=== PATIENT | male | born 1985 | race Two or more races ===

== ENCOUNTER 2018-06-19 09:30 | Inpatient (IN) | payer OTHER ==
[2018-06-19 09:50] VITALS: BMI 20.5
[2018-06-19] MEDS ORDERED: SODIUM CHLORIDE 0.9% 1000 ML INFUS.BAG IV STA (09:55)
[2018-06-19] MEDS ORDERED: ACETAMINOPHEN 1000 MG/100 ML VIAL (NON FORMULARY) IVPB ONE ×2 (09:57→23:56)
[2018-06-19] MEDS ORDERED: ACETAMINOPHEN INJECTION 100 ML IVPB ONE (10:07)
--- NOTE | 2018-06-19 10:33 | PDOC ---
History of Present Illness - General History Source: Patient, Family (Brother in law ) Exam Limitations: No Limitations - History of Present Illness Initial Comments: 06/19/18 11:33 The patient is a 33 year old male presenting with his brother in law, with no significant past medical history, who presents to the ED complaining of fever, chills, nausea, body aches for the past 4 days, a/w nonproductive cough for the past 2 days. He reports that his fevers have been as high as 100.6. He notes that these kinds of fevers happen to him twice a year, usually at the change of temperature. He denies any recent travel or sick contacts. He denies any insect bites, rash or hiking. He notes that his last bowel movement was yesterday and denies any kind of blood in stool. No IVDU or recent surgeries/procedures. The patient denies chest pain, shortness of breath, headache and dizziness. Denies vomiting, diarrhea or constipation. Denies dysuria, frequency, urgency and hematuria. Allergies: None Past surgical history: None reported Social History: No alcohol, tobacco or drug use reported No PCP <Vipul Peres - Last Filed: 06/19/18 11:33> - General History Source: Patient, Family Exam Limitations: No Limitations <Jackelin Hurtado - Last Filed: 06/19/18 16:11> - General Chief Complaint: SIRS, Suspected/Possible Stated Complaint: FEVER, PAIN Time Seen by Provider: 06/19/18 09:55 Past History <Vipul Peres - Last Filed: 06/19/18 11:33> - Past Medical History COPD: No - Immunization History Immunization Up to Date: No - Suicide/Smoking/Psychosocial Hx Smoking History: Never smoked Hx Alcohol Use: No Drug/Substance Use Hx: No <Jakcelin Hurtado - Last Filed: 06/19/18 16:11> - Past Medical History Allergies/Adverse Reactions: Allergies Allergy/AdvReac Type Severity Reaction Status Date / Time No Known Allergies Allergy Verified 06/19/18 09:47 Review of Systems - Review of Systems Able to Perform ROS?: Yes Comments:: 06/19/18 11:33 Constitutional: (+) fevers and chills. +weakness HEENT: no headache or dizziness. No neck pain. CVS: no cp or syncope. Resp: (+) Cough. no sob. No wheezing or hemoptysis. Abdomen: (+) Nausea, no abdominal pain, or vomiting. No bloody stools. No diarrhea MUSCULOSKELETAL: No joint pain and swelling. +back pain SKIN: no redness or skin changes, no discharge, no rash. +pallor Hematologic: no easy bruising/bleeding. NEUROLOGIC: No headache, dizziness, LOC or altered mental status. No weakness, numbness or tingling. All other systems reviewed and negative, or as documented in HPI. <Vipul Peres - Last Filed: 06/19/18 11:33> *Physical Exam - Vital Signs Last Vital Signs Temp Pulse Resp BP Pulse Ox 103.1 F H 137 H 18 120/78 97 06/19/18 09:47 06/19/18 09:47 06/19/18 09:47 06/19/18 09:47 06/19/18 09:47 - Physical Exam Comments: 06/19/18 11:33 General: (+) Pale appearing, awake and alert, NAD. speaking full sentences and clearly HEENT: NCAT, PERRL, EOMI, clear conjunctiva, anicteric, moist mucus membranes, clear oropharynx, no oral lesions.. Neck: neck supple, FROM Resp: CTAB, normal and even respirations, no respiratory distress CVS: +tachycardic, no murmurs, 2+ peripheral pulses throughout, no peripheral edema Abdomen: soft, NTND, no peritoneal signs. No CVAT. Back: +diffuse tenderness over thoracic and lumbar back, normal inspection and ROM MSK: no edema, BALDERAS x4, ROM intact. No clubbing or cyanosis. normal bulk and tone. Neuro: alert, oriented appropriately; no focal neurologic deficits Skin: very warm to touch and well perfused, cap refill <2 sec, pallor/ no cyanosis. <Vipul Peres - Last Filed: 06/19/18 11:33> - Vital Signs Last Vital Signs Temp Pulse Resp BP Pulse Ox 103.1 F H 137 H 18 120/78 97 06/19/18 09:47 06/19/18 09:47 06/19/18 09:47 06/19/18 09:47 06/19/18 09:47 <Jackelin Hurtado - Last Filed: 06/19/18 16:11> ED Treatment Course - LABORATORY CBC & Chemistry Diagram: 06/19/18 10:21 06/19/18 10:21 - ADDITIONAL ORDERS Additional order review: Laboratory Results 06/19/18 06/19/18 06/19/18 10:40 10:21 10:21 VBG pH POC VBG pCO2 POC VBG pO2 Mixed VBG HCO3 Sodium Potassium Chloride Carbon Dioxide Anion Gap BUN Creatinine Creat Clearance w eGFR Random Glucose Lactic Acid Calcium Total Bilirubin AST ALT Alkaline Phosphatase Troponin I Cancelled Total Protein Albumin Lipase Cancelled Urine Color Jasmine Urine Appearance Clear Urine pH 7.0 Ur Specific [place] 1.029 Urine Protein 1+ H Urine Glucose (UA) Negative Urine Ketones Trace H Urine Blood Negative Urine Nitrite Negative Urine Bilirubin Negative Urine Urobilinogen Negative Ur Leukocyte Esterase Negative Urine WBC (Auto) 1 Urine RBC (Auto) 2 Ur Epithelial Cells Rare Hyaline Casts 1 Urine Mucus Few 06/19/18 06/19/18 06/19/18 10:21 10:21 10:21 VBG pH 7.37 POC VBG pCO2 50.9 POC VBG pO2 22.1 L Mixed VBG HCO3 28.8 H Sodium 138 Potassium 4.2 Chloride 102 Carbon Dioxide 28 Anion Gap 8 BUN 15 Creatinine 1.1 Creat Clearance w eGFR > 60 Random Glucose 108 H Lactic Acid 1.4 Calcium 8.9 Total Bilirubin 0.6 AST 32 ALT 34 Alkaline Phosphatase 79 Troponin I < 0.02 Total Protein 8.1 Albumin 4.0 Lipase 238 Urine Color Urine Appearance Urine pH Ur Specific [place] Urine Protein Urine Glucose (UA) Urine Ketones Urine Blood Urine Nitrite Urine Bilirubin Urine Urobilinogen Ur Leukocyte Esterase Urine WBC (Auto) Urine RBC (Auto) Ur Epithelial Cells Hyaline Casts Urine Mucus 06/19/18 10:21 RBC 5.67 H MCV 80.8 MCHC 33.7 RDW 13.4 MPV 10.0 Neutrophils % 73.2 Lymphocytes % 15.6 Monocytes % 10.5 H Eosinophils % 0.3 Basophils % 0.4 - Medications Given in the ED: ED Medications Discontinued Medications Generic Name Dose Route Start Last Admin Trade Name Freq PRN Reason Stop Dose Admin Acetaminophen 1,000 mg 06/19/18 09:57 06/19/18 10:15 Ofirmev Injection - IVPB 06/19/18 09:58 1,000 mg ONCE ONE Administration Sodium Chloride 2,000 ml 06/19/18 09:55 06/19/18 10:15 Normal Saline - 30 ml/kg (2000 ml) 06/19/18 09:56 2,000 ml IV Administration ONCE STA <Vipul Peres - Last Filed: 06/19/18 11:33> - LABORATORY CBC & Chemistry Diagram: 06/19/18 10:21 06/19/18 10:21 - RADIOLOGY Radiology Studies Ordered: Category Date Time Status CHEST PA & LAT [RAD] Stat Radiology 06/19/18 10:31 Ordered Chest X-Ray Result: Other (atelectasis vs infiltrate on left side) - Medications Given in the ED: ED Medications Discontinued Medications Generic Name Dose Route Start Last Admin Trade Name Freq PRN Reason Stop Dose Admin Acetaminophen 1,000 mg 06/19/18 09:57 06/19/18 10:15 Ofirmev Injection - IVPB 06/19/18 09:58 1,000 mg ONCE ONE Administration Sodium Chloride 2,000 ml 06/19/18 09:55 06/19/18 10:15 Normal Saline - 30 ml/kg (2000 ml) 06/19/18 09:56 2,000 ml IV Administration ONCE STA <HurtadoJackelin - Last Filed: 06/19/18 16:11> Medical Decision Making - Medical Decision Making 06/19/18 11:29 33 YOM with no med history with fever x 4 days, +cough and weakness, back pain/ myalgias. DDx. viral syndrome, febrile illness, bacteremia, Babesia, lyme disease vitals with +fever, tachycardia, normotensive. pale appearing, but No acute distress. VS improved with treatment, still tachy, normotensive, fever downtrending EKG sinus tachycardia 127 bpm, no interval abnormalities, narrow QRS, ST and T wave segments and morphology normal. Nonspecific T wave abnormalities in III, no significant derangements. labs and lytes wnl, reassuring; lactic normal cultures including blood and urine pending UA neg for infection peripheral smear and lyme sent for possible parasitic infection /Babesia in high risk geographic area. CXR with ?left lobe infiltrate vs atelectasis, will treat clinically for pneumonia, Ceftriaxone and azithromycin. no sputum for culture, which is fine. dispo: admit for close monitoring due to sepsis, but suspecting atypical pneumonia with prior history and +respiratory sx, f/u cultures and smear and observation. 06/19/18 16:10 <Jackelin Hurtado - Last Filed: 06/19/18 16:11> *DC/Admit/Observation/Transfer - Attestations Scribe Attestion: 06/19/18 11:34 Documentation prepared by Vipul Peres, acting as medical clinic manager for Jackelin Hurtado MD <Vipul Peres - Last Filed: 06/19/18 11:33> - Discharge Dispostion Decision to Admit order: Yes Decision to Admit order Date/Time: 06/19/18 11:37 Decision to Admit Order Category Date Time Status Decision to Admit to Hospital Routine Admission 06/19/18 10:34 Active - Attestations Physician Attestion: 06/19/18 11:25 I, Jackelin Hurtado MD, attest that this document has been prepared under my direction and personally reviewed by me in its entirety. I further attest, that it accurately reflects all work, treatment, procedures and medical decision -making performed by me. <Jackelin Hurtado - Last Filed: 06/19/18 16:11> Diagnosis at time of Disposition: Sepsis, Febrile illness, acute, Pneumonia - Discharge Dispostion Condition at time of disposition: Guarded
[2018-06-19 10:59] LABS: VENOUS PC02 50.9 mmHg (38-52); VENOUS PH 7.37 (7.32-7.42); VENOUS PO2 22.1 mmHg (28-48)
[2018-06-19 11:08] LABS: BASO % 0.4 % (0-2.0); EOS % 0.3 % (0-4.5); HEMATOCRIT 45.8 % (35.4-49); HEMOGLOBIN 15.5 GM/dL (11.7-16.9); LYMPH % 15.6 % (8-40); MCH 27.3 pg (25.7-33.7); MCHC 33.7 g/dl (32.0-35.9); MEAN CELL VOLUME 80.8 fl (80-96); MONO % 10.5 % (3.8-10.2); NEUT % 73.2 % (42.8-82.8); PLATELET COUNT 140 K/MM3 (134-434); RBC 5.67 M/mm3 (4.00-5.60); RDW 13.4 % (11.9-15.9); WHITE BLOOD COUNT 8.5 K/mm3 (4.0-10.0)
[2018-06-19 11:11] LABS: URINE APPEARANCE CLEAR; URINE BILIRUBIN NEGATIVE (<2.0 mg/dL); URINE COLOR AMBER; URINE GLUCOSE (UA) NEGATIVE (NEGATIVE); URINE KETONE TRACE (NEGATIVE); URINE LEUK ESTERASE NEGATIVE (NEGATIVE); URINE NITRITE NEGATIVE (NEGATIVE); URINE PROTEIN 1+ (NEGATIVE); URINE UROBILINOGEN NEGATIVE mg/dL (0.2-1.0)
[2018-06-19 11:17] LABS: EPI CELLS RARE /HPF (FEW); URINE HYALINE CAST 1 /lpf; URINE MUCUS FEW
[2018-06-19 11:23] LABS: INR 1.18 (0.83-1.09)
[2018-06-19 11:24] LABS: ALK PHOS 79 U/L (45-117); ANION GAP 8 MMOL/L (8-16); BILIRUBIN,TOTAL 0.6 mg/dL (0.2-1); BLOOD UREA NITROGEN 15 mg/dL (7-18); CALCIUM 8.9 mg/dL (8.5-10.1); CHLORIDE 102 mmol/L (98-107); CO2 28 mmol/L (21-32); CREATININE 1.1 mg/dL (0.55-1.3); GLUCOSE,RANDOM 108 mg/dL (74-106); LIPASE 238 U/L (73-393); POTASSIUM 4.2 mmol/L (3.5-5.1); SGOT/AST 32 U/L (15-37); SGPT/ALT 34 U/L (13-61); SODIUM 138 mmol/L (136-145); TOT PROT 8.1 g/dl (6.4-8.2)
[2018-06-19] MEDS ORDERED: CEFTRIAXONE 1,000 MG in DEXTROSE 5%-WATER - 50 ML IVPB ONE (11:43)
[2018-06-19] MEDS ORDERED: AZITHROMYCIN 500 MG TABLET PO ONE (11:44)
[2018-06-19] MEDS ORDERED: CEFTRIAXONE 1 GM/50 ML BAG ONE (12:01)
[2018-06-19] MEDS ORDERED: AZITHROMYCIN 500 MG TABLET ONE (12:01)
[2018-06-19] MEDS ORDERED: LACTATED RINGERS SOLUTION 1,000 ML IV SCH (12:45)
--- NOTE | 2018-06-19 14:22 | HP ---
CHIEF COMPLAINT: fever PCP: none HISTORY OF PRESENT ILLNESS: 33 year old male with no past medical history presents to the hospital for 4 days of fevers, chills, lower back pain and dry, nonproductive cough. He reports no inciting factors but states that he gets similar symptoms around twice a year when the seasons change and the weather changes from warm to cold and vice-versa. Patietn denies nausea, vomiting, diarrhea, chest pain, shortness of breath. Reports that he took tylenol, which helped him a little, but reports that the fever returned. ER course was notable for: (1) fever 102 (2) tachycardia (3) CXR with possible infiltrate in L mid/lower lobe Recent Travel: denies PAST MEDICAL HISTORY: none PAST SURGICAL HISTORY: denies Social History: Smoking: never Alcohol: never Drugs: never Family History: denies any history of stroke, DM, HTN, or cancer Allergies No Known Allergies Allergy (Verified 06/19/18 09:47) HOME MEDICATIONS: REVIEW OF SYSTEMS CONSTITUTIONAL: fever Absent: chills, diaphoresis, generalized weakness, malaise, loss of appetite, weight change HEENT: Absent: rhinorrhea, nasal congestion, throat pain, throat swelling, difficulty swallowing, mouth swelling, ear pain, eye pain, visual changes CARDIOVASCULAR: Absent: chest pain, syncope, palpitations, irregular heart rate, lightheadedness , peripheral edema RESPIRATORY: Absent: cough, shortness of breath, dyspnea with exertion, orthopnea, wheezing, stridor, hemoptysis GASTROINTESTINAL: Absent: abdominal pain, abdominal distension, nausea, vomiting, diarrhea, constipation, melena, hematochezia GENITOURINARY: Absent: dysuria, frequency, urgency, hesitancy, hematuria, flank pain, genital pain MUSCULOSKELETAL: Absent: myalgia, arthralgia, joint swelling, back pain, neck pain SKIN: Absent: rash, itching, pallor HEMATOLOGIC/IMMUNOLOGIC: Absent: easy bleeding, easy bruising, lymphadenopathy, frequent infections ENDOCRINE: Absent: unexplained weight gain, unexplained weight loss, heat intolerance, cold intolerance NEUROLOGIC: Absent: headache, focal weakness or paresthesias, dizziness, unsteady gait, seizure, mental status changes, bladder or bowel incontinence PSYCHIATRIC: Absent: anxiety, depression, suicidal or homicidal ideation, hallucinations. PHYSICAL EXAMINATION Vital Signs - 24 hr 06/19/18 06/19/18 06/19/18 09:47 10:20 11:58 Temperature 103.1 F H 102.0 F H Pulse Rate 137 H Pulse Rate [ 99 H Right] Respiratory 18 16 Rate Blood Pressure 120/78 Blood Pressure 132/71 [Right Arm] O2 Sat by Pulse 97 99 99 Oximetry (%) GENERAL: A&Ox3, no acute distress EYES: PERRLA, EOMI ENT: Moist mucus membranes NECK: No JVD LUNGS: CTA, no wheezes HEART: RRR, no murmurs ABDOMEN: Soft, nontender, BS present MUSCULOSKELETAL: No CVA Tenderness EXTREMITIES: 2+ pulses, no edema. NEUROLOGICAL: Cranial nerves II-XII intact. Laboratory Results - last 24 hr 06/19/18 06/19/18 06/19/18 10:21 10:21 10:21 WBC 8.5 RBC 5.67 H Hgb 15.5 Hct 45.8 MCV 80.8 MCH 27.3 MCHC 33.7 RDW 13.4 Plt Count 140 MPV 10.0 Absolute Neuts (auto) 6.2 Neutrophils % 73.2 Lymphocytes % 15.6 Monocytes % 10.5 H Eosinophils % 0.3 Basophils % 0.4 Nucleated RBC % 0 PT with INR 14.00 H INR 1.18 H VBG pH 7.37 POC VBG pCO2 50.9 POC VBG pO2 22.1 L Mixed VBG HCO3 28.8 H Sodium Potassium Chloride Carbon Dioxide Anion Gap BUN Creatinine Creat Clearance w eGFR Random Glucose Lactic Acid Calcium Total Bilirubin AST ALT Alkaline Phosphatase Troponin I Total Protein Albumin Lipase Urine Color Urine Appearance Urine pH Ur Specific [place] Urine Protein Urine Glucose (UA) Urine Ketones Urine Blood Urine Nitrite Urine Bilirubin Urine Urobilinogen Ur Leukocyte Esterase Urine WBC (Auto) Urine RBC (Auto) Ur Epithelial Cells Hyaline Casts Urine Mucus 06/19/18 06/19/18 06/19/18 10:21 10:21 10:21 WBC RBC Hgb Hct MCV MCH MCHC RDW Plt Count MPV Absolute Neuts (auto) Neutrophils % Lymphocytes % Monocytes % Eosinophils % Basophils % Nucleated RBC % PT with INR INR VBG pH POC VBG pCO2 POC VBG pO2 Mixed VBG HCO3 Sodium 138 Potassium 4.2 Chloride 102 Carbon Dioxide 28 Anion Gap 8 BUN 15 Creatinine 1.1 Creat Clearance w eGFR > 60 Random Glucose 108 H Lactic Acid 1.4 Calcium 8.9 Total Bilirubin 0.6 AST 32 ALT 34 Alkaline Phosphatase 79 Troponin I < 0.02 Cancelled Total Protein 8.1 Albumin 4.0 Lipase 238 Urine Color Urine Appearance Urine pH Ur Specific [place] Urine Protein Urine Glucose (UA) Urine Ketones Urine Blood Urine Nitrite Urine Bilirubin Urine Urobilinogen Ur Leukocyte Esterase Urine WBC (Auto) Urine RBC (Auto) Ur Epithelial Cells Hyaline Casts Urine Mucus 06/19/18 06/19/18 10:21 10:40 WBC RBC Hgb Hct MCV MCH MCHC RDW Plt Count MPV Absolute Neuts (auto) Neutrophils % Lymphocytes % Monocytes % Eosinophils % Basophils % Nucleated RBC % PT with INR INR VBG pH POC VBG pCO2 POC VBG pO2 Mixed VBG HCO3 Sodium Potassium Chloride Carbon Dioxide Anion Gap BUN Creatinine Creat Clearance w eGFR Random Glucose Lactic Acid Calcium Total Bilirubin AST ALT Alkaline Phosphatase Troponin I Total Protein Albumin Lipase Cancelled Urine Color Jasmine Urine Appearance Clear Urine pH 7.0 Ur Specific [place] 1.029 Urine Protein 1+ H Urine Glucose (UA) Negative Urine Ketones Trace H Urine Blood Negative Urine Nitrite Negative Urine Bilirubin Negative Urine Urobilinogen Negative Ur Leukocyte Esterase Negative Urine WBC (Auto) 1 Urine RBC (Auto) 2 Ur Epithelial Cells Rare Hyaline Casts 1 Urine Mucus Few ASSESSMENT/PLAN: 33 year old male with no past medical history presents to the hospital for 4 days of fevers, chills, lower back pain and dry, nonproductive cough. #Sepsis 2/2 Community Acquired Pneumonia: meets sepsis criteria from fever and tachycardia -CXR suggestive of possible PNA -white count normal -tylenol for fevers -ceftriaxone/azithromycin -fluid resuscitation, LR @ 100cc/hr #FEN -LR @ 100cc/hr -lytes normal -regular diet #Prophylaxis -early ambulation #Disposition -admit med surg Visit type - Emergency Visit Emergency Visit: Yes ED Registration Date: 06/19/18 Care time: The patient presented to the Emergency Department on the above date and was hospitalized for further evaluation of their emergent condition. - New Patient This patient is new to me today: Yes Date on this admission: 06/19/18 - Critical Care Critical Care patient: No
[2018-06-19] MEDS ORDERED: ACETAMINOPHEN 325 MG TABLET (FP) ONE (14:42)
[2018-06-19] MEDS: ACETAMINOPHEN 325 MG TABLET (FP) PO PRN ×2 (14:44→21:49)
--- NOTE | 2018-06-19 15:29 | PN ---
Teaching Attending Note Name of Resident: Camilo Bear ATTENDING PHYSICIAN STATEMENT I saw and evaluated the patient. I reviewed the resident's note and discussed the case with the resident. I agree with the resident's findings and plan as documented. SUBJECTIVE: This is a healthy 33 year old man who comes to the ED complaining of low back pain, fever, chills, and non-productive cough x 4 days. He denies chest pain, palpitations, SOB, abdominal pain, nausea, diarrhea, constipation, hematuria, dysuria, urinary frequency, rash. OBJECTIVE: Vital Signs Period Temp Pulse Resp BP Sys/Husain Pulse Ox Last 24 Hr 100.1 F-103.1 F 99-137 16-18 111-132/65-78 97-99 HEART: S1S2, tachycardic LUNGS: Crackles at left base ABDOMEN: Soft, non-tender, non-distended, normal BS EXTREMITIES: No edema BACK: No spinal, paraspinal, CVA tenderness Laboratory Tests 06/19/18 06/19/18 06/19/18 10:21 10:21 10:21 WBC 8.5 RBC 5.67 H Hgb 15.5 Hct 45.8 MCV 80.8 MCH 27.3 MCHC 33.7 RDW 13.4 Plt Count 140 MPV 10.0 Absolute Neuts (auto) 6.2 Neutrophils % 73.2 Lymphocytes % 15.6 Monocytes % 10.5 H Eosinophils % 0.3 Basophils % 0.4 Nucleated RBC % 0 PT with INR 14.00 H INR 1.18 H VBG pH 7.37 POC VBG pCO2 50.9 POC VBG pO2 22.1 L Mixed VBG HCO3 28.8 H Sodium Potassium Chloride Carbon Dioxide Anion Gap BUN Creatinine Creat Clearance w eGFR Random Glucose Lactic Acid Calcium Total Bilirubin AST ALT Alkaline Phosphatase Troponin I Total Protein Albumin Lipase Urine Color Urine Appearance Urine pH Ur Specific [place] Urine Protein Urine Glucose (UA) Urine Ketones Urine Blood Urine Nitrite Urine Bilirubin Urine Urobilinogen Ur Leukocyte Esterase Urine WBC (Auto) Urine RBC (Auto) Ur Epithelial Cells Hyaline Casts Urine Mucus 06/19/18 06/19/18 06/19/18 10:21 10:21 10:21 WBC RBC Hgb Hct MCV MCH MCHC RDW Plt Count MPV Absolute Neuts (auto) Neutrophils % Lymphocytes % Monocytes % Eosinophils % Basophils % Nucleated RBC % PT with INR INR VBG pH POC VBG pCO2 POC VBG pO2 Mixed VBG HCO3 Sodium 138 Potassium 4.2 Chloride 102 Carbon Dioxide 28 Anion Gap 8 BUN 15 Creatinine 1.1 Creat Clearance w eGFR > 60 Random Glucose 108 H Lactic Acid 1.4 Calcium 8.9 Total Bilirubin 0.6 AST 32 ALT 34 Alkaline Phosphatase 79 Troponin I < 0.02 Cancelled Total Protein 8.1 Albumin 4.0 Lipase 238 Urine Color Urine Appearance Urine pH Ur Specific [place] Urine Protein Urine Glucose (UA) Urine Ketones Urine Blood Urine Nitrite Urine Bilirubin Urine Urobilinogen Ur Leukocyte Esterase Urine WBC (Auto) Urine RBC (Auto) Ur Epithelial Cells Hyaline Casts Urine Mucus 06/19/18 06/19/18 10:21 10:40 WBC RBC Hgb Hct MCV MCH MCHC RDW Plt Count MPV Absolute Neuts (auto) Neutrophils % Lymphocytes % Monocytes % Eosinophils % Basophils % Nucleated RBC % PT with INR INR VBG pH POC VBG pCO2 POC VBG pO2 Mixed VBG HCO3 Sodium Potassium Chloride Carbon Dioxide Anion Gap BUN Creatinine Creat Clearance w eGFR Random Glucose Lactic Acid Calcium Total Bilirubin AST ALT Alkaline Phosphatase Troponin I Total Protein Albumin Lipase Cancelled Urine Color Jasmine Urine Appearance Clear Urine pH 7.0 Ur Specific [place] 1.029 Urine Protein 1+ H Urine Glucose (UA) Negative Urine Ketones Trace H Urine Blood Negative Urine Nitrite Negative Urine Bilirubin Negative Urine Urobilinogen Negative Ur Leukocyte Esterase Negative Urine WBC (Auto) 1 Urine RBC (Auto) 2 Ur Epithelial Cells Rare Hyaline Casts 1 Urine Mucus Few ASSESSMENT AND PLAN: This is a healthy 33 year old man who presented to the ED with fever, chills, non-productive cough, and low back pain. 1. Sepsis (fever, tachycardia) secondary to pneumonia - Rocephin, Zithromax IV - IV fluid
[2018-06-19] MEDS ORDERED: KETOROLAC TROMETHAMINE 15 MG/ML VIAL IVPUSH ONE (18:47)
[2018-06-19] MEDS ORDERED: KETOROLAC TROMETHAMINE 15 MG/ML VIAL ONE (18:48)
[2018-06-20] MEDS: ACETAMINOPHEN 325 MG TABLET (FP) PO PRN ×3 (06:24→23:16)
[2018-06-20 08:24] LABS: HEMATOCRIT 41.6 % (35.4-49); HEMOGLOBIN 14.2 GM/dL (11.7-16.9); MCH 27.4 pg (25.7-33.7); MEAN CELL VOLUME 80.5 fl (80-96); MEAN PLT VOLUME 9.5 fl (7.5-11.1); PLATELET COUNT 126 K/MM3 (134-434); RBC 5.17 M/mm3 (4.00-5.60); WHITE BLOOD COUNT 8.2 K/mm3 (4.0-10.0)
[2018-06-20 09:00] LABS: ANION GAP 7 MMOL/L (8-16); BLOOD UREA NITROGEN 10 mg/dL (7-18); CALCIUM 8.7 mg/dL (8.5-10.1); CHLORIDE 104 mmol/L (98-107); CO2 26 mmol/L (21-32); CREATININE 0.9 mg/dL (0.55-1.3); GLUCOSE,RANDOM 121 mg/dL (74-106); POTASSIUM 3.9 mmol/L (3.5-5.1); SODIUM 136 mmol/L (136-145)
[2018-06-20] MEDS ORDERED: PT OWN MED DRAWER 7, Y5N ONE ×3 (09:00→13:19)
[2018-06-20] MEDS ORDERED: DEXTROSE 5%-WATER 100 ML IVPB ONE (09:01)
[2018-06-20] MEDS ORDERED: AZITHROMYCIN IVPB 500 MG in DEXTROSE 5%-WATER - 250 ML IVPB SCH (10:00)
--- NOTE | 2018-06-20 10:45 | EKG ---
Test Reason : Blood Pressure : / mmHG Vent. Rate : 127 BPM Atrial Rate : 127 BPM P-R Int : 136 ms QRS Dur : 080 ms QT Int : 274 ms P-R-T Axes : 069 066 034 degrees QTc Int : 398 ms SINUS TACHYCARDIA OTHERWISE NORMAL ECG NO PREVIOUS ECGS AVAILABLE Confirmed by ADRI LINARES MD ([id number]) on 06/20/2018 10:45:06 AM Referred By: Confirmed By:ADRI LINARES MD
[2018-06-20] MEDS: AZITHROMYCIN IVPB 500 MG/250 ML BAG IVPB SCH (13:23)
[2018-06-20] MEDS: SODIUM CHLORIDE 1,000 ML IV SCH (15:13)
[2018-06-20] MEDS: CEFTRIAXONE 2 GM in DEXTROSE 5%-WATER 100 ML IVPB SCH (15:14)
--- NOTE | 2018-06-20 17:25 | PN ---
Physical Exam: SUBJECTIVE: Patient seen and examined at bedside this morning. Had fever overnight, given Tylenol. Otherwise denies chest pain, SOB, palpitations, abdominal pain, diarrhea, urinary symptoms. OBJECTIVE: Vital Signs Period Temp Pulse Resp BP Sys/Husain Pulse Ox Last 24 Hr 99.1 F-103.0 F 83-108 18-20 110-146/54-88 96 GENERAL: The patient is awake, alert, and fully oriented, in no acute distress. HEAD: Normal with no signs of trauma. EYES: PERRLA, EOMI, sclera anicteric, conjunctiva clear. ENT: Ears normal, nares patent, oropharynx clear without exudates, moist mucous membranes. NECK: Trachea midline, full range of motion, supple. LUNGS: Breath sounds equal, clear to auscultation bilaterally. HEART: Regular rate and rhythm, S1, S2 without murmur, rub or gallop. ABDOMEN: Soft, nontender, nondistended, normoactive bowel sounds. EXTREMITIES: 2+ pulses, warm, well-perfused, no edema. NEUROLOGICAL: Cranial nerves II through XII grossly intact. Normal speech, gait not observed. PSYCH: Normal mood, normal affect. SKIN: Warm, dry, normal turgor, no rashes or lesions noted Laboratory Results - last 24 hr 06/19/18 06/20/18 06/20/18 11:40 08:00 08:00 WBC 8.2 RBC 5.17 Hgb 14.2 Hct 41.6 MCV 80.5 MCH 27.4 MCHC 34.0 RDW 13.0 Plt Count 126 L MPV 9.5 Sodium 136 Potassium 3.9 Chloride 104 Carbon Dioxide 26 Anion Gap 7 L BUN 10 Creatinine 0.9 Creat Clearance w eGFR > 60 Random Glucose 121 H Calcium 8.7 Lyme Screen IgG & IgM <0.91 Active Medications Generic Name Dose Route Start Last Admin Trade Name Freq PRN Reason Stop Dose Admin Acetaminophen 650 mg 06/19/18 14:30 06/20/18 13:22 Tylenol - PO 650 mg Q4H PRN Administration FEVER Ceftriaxone Sodium 2 gm/ 100 mls @ 200 mls/hr 06/20/18 10:00 06/20/18 15:14 Dextrose IVPB 200 mls/hr DAILY COOPER Administration Protocol Azithromycin 500 mg in 250 mls @ 250 mls/hr 06/20/18 12:00 06/20/18 13:23 Zithromax 500mg Ivpb (Pre-Docked) IVPB 250 mls/hr DAILY COOPER Administration Sodium Chloride 1,000 mls @ 100 mls/hr 06/20/18 14:00 06/20/18 15:13 Normal Saline - IV 100 mls/hr ASDIR COOPER Administration Imaging Chest xray - Questionable atelectasis or early infiltrate left mid and lower lung field. ASSESSMENT/PLAN: Patient is a 33 year old male with no past medical history presents to the hospital for 4 days of fevers, chills, lower back pain and dry, nonproductive cough. #Sepsis 2/2 Community Acquired Pneumonia: Fever and tachycardia -Chest xray - questionable atelectasis or early infiltrate left mid and lower lung field. -Ceftriaxone 2gm and Azithromycin 500mg daily -Blood cultures, sputum cultures done -IV NS @100ml/hr. Continue until afebrile. -Influenza swab - negative -Tylenol PRN for fevers. #FEN -IV NS @ 100cc/hr -lytes normal, routine bmp monitoring -regular diet #Prophylaxis -early ambulation #Disposition -admit med surg Visit type - Emergency Visit Emergency Visit: Yes ED Registration Date: 06/19/18 Care time: The patient presented to the Emergency Department on the above date and was hospitalized for further evaluation of their emergent condition. - New Patient This patient is new to me today: Yes Date on this admission: 06/20/18 - Critical Care Critical Care patient: No
--- NOTE | 2018-06-20 17:35 | PN ---
Teaching Attending Note Name of Resident: Scarlett Novak ATTENDING PHYSICIAN STATEMENT I saw and evaluated the patient. I reviewed the resident's note and discussed the case with the resident. I agree with the resident's findings and plan as documented. SUBJECTIVE:conitnues to have intermittent chills. denies CP, SOB, fever, N/V/C/ D no cough. back pain is better OBJECTIVE: Last Vital Signs Temp Pulse Resp BP Pulse Ox 101.3 F H 92 H 18 110/71 96 06/20/18 15:48 06/20/18 15:48 06/20/18 15:48 06/20/18 15:48 06/20/18 10:30 General NAD Lungs CTA B/L no wheezing/rales/rhonchi ASSESSMENT AND PLAN: 33yo M with no PMH presented to the ER with back pain, subjective fevers and chills and found to be septic due to PNA 1. Sepsis due to PNA- Tm 103.1. check flu swab. cont ceftriaxone and Azithro day 2. cont IVF until afebrile and no longer tachycardic. F/u Cx, check HIV 2. DVT ppx- EAM
[2018-06-21 08:06] LABS: BASO % 0.6 % (0-2.0); EOS % 2.2 % (0-4.5); HEMATOCRIT 41.3 % (35.4-49); HEMOGLOBIN 13.9 GM/dL (11.7-16.9); LYMPH % 37.8 % (8-40); MCH 26.9 pg (25.7-33.7); MCHC 33.5 g/dl (32.0-35.9); MEAN CELL VOLUME 80.2 fl (80-96); MEAN PLT VOLUME 9.6 fl (7.5-11.1); MONO % 16.3 % (3.8-10.2); NEUT % 43.1 % (42.8-82.8); PLATELET COUNT 117 K/MM3 (134-434); RBC 5.16 M/mm3 (4.00-5.60); RDW 13.3 % (11.9-15.9); WHITE BLOOD COUNT 4.8 K/mm3 (4.0-10.0)
[2018-06-21 08:29] LABS: ANION GAP 3 MMOL/L (8-16); BLOOD UREA NITROGEN 9 mg/dL (7-18); CALCIUM 8.8 mg/dL (8.5-10.1); CHLORIDE 107 mmol/L (98-107); CO2 30 mmol/L (21-32); CREATININE 0.8 mg/dL (0.55-1.3); GLUCOSE,RANDOM 93 mg/dL (74-106); POTASSIUM 4.3 mmol/L (3.5-5.1); SODIUM 140 mmol/L (136-145)
[2018-06-21] MEDS: SODIUM CHLORIDE 1,000 ML IV SCH ×2 (09:12→14:00)
[2018-06-21] MEDS ORDERED: PT OWN MED DRAWER 7, Y5N ONE (10:38)
[2018-06-21] MEDS: AZITHROMYCIN IVPB 500 MG/250 ML BAG IVPB SCH (10:46)
[2018-06-21] MEDS: CEFTRIAXONE 2 GM in DEXTROSE 5%-WATER 100 ML IVPB SCH (12:22)
--- NOTE | 2018-06-21 14:56 | PN ---
Teaching Attending Note Name of Resident: Scarlett Novak ATTENDING PHYSICIAN STATEMENT I saw and evaluated the patient. I reviewed the resident's note and discussed the case with the resident. I agree with the resident's findings and plan as documented with exceptions below. SUBJECTIVE: Patient seen and examined. feels better, breathing/cough and aches and pains improved. OBJECTIVE: Vital Signs Period Temp Pulse Resp BP Sys/Husain Pulse Ox Last 24 Hr 98.4 F-101.3 F 80-104 18-20 110-138/71-87 96-99 Intake & Output 06/18/18 06/19/18 06/20/18 06/21/18 23:59 23:59 23:59 23:59 Intake Total 2380 2080 Balance 2380 2080 Weight 147 lb general: sitting in bed in no acute distress Chest: few left basilar rales, Abdomen:soft, NT Extremities: no edema Home Medications Medication Instructions Recorded NK [No Known Home Medication] 06/19/18 Active Medications Acetaminophen (Tylenol -) 650 mg PO Q4H PRN PRN Reason: FEVER Last Admin: 06/20/18 23:16 Dose: 650 mg Ceftriaxone Sodium 2 gm/ (Dextrose) 100 mls @ 200 mls/hr IVPB DAILY COOPER; Protocol Last Admin: 06/21/18 12:22 Dose: 200 mls/hr Azithromycin (Zithromax 500mg Ivpb (Pre-Docked)) 500 mg in 250 mls @ 250 mls/ hr IVPB DAILY COOPER Last Admin: 06/21/18 10:46 Dose: 250 mls/hr Sodium Chloride (Normal Saline -) 1,000 mls @ 100 mls/hr IV ASDIR COOPER Last Admin: 06/21/18 09:12 Dose: 100 mls/hr Laboratory Results - last 24 hr 06/20/18 06/21/18 06/21/18 19:05 07:20 07:20 WBC 4.8 RBC 5.16 Hgb 13.9 Hct 41.3 MCV 80.2 MCH 26.9 MCHC 33.5 RDW 13.3 Plt Count 117 L MPV 9.6 Absolute Neuts (auto) 2.1 Neutrophils % 43.1 D Lymphocytes % 37.8 D Monocytes % 16.3 H Eosinophils % 2.2 D Basophils % 0.6 Nucleated RBC % 0 Sodium 140 Potassium 4.3 Chloride 107 Carbon Dioxide 30 Anion Gap 3 L BUN 9 Creatinine 0.8 Creat Clearance w eGFR > 60 Random Glucose 93 Calcium 8.8 HIV 1&2 Antibody Screen Negative HIV P24 Antigen Negative Microbiology 06/20/18 15:00 Sputum - Expectorated Sputum Culture - Preliminary NORMAL RESPIRATORY ANTONIO 06/19/18 10:21 Blood - Peripheral Venous Blood Culture - Preliminary NO GROWTH OBTAINED AFTER 48 HOURS, INCUBATION TO CONTINUE FOR 3 DAYS. 06/19/18 10:21 Blood - Peripheral Venous Blood Culture - Preliminary NO GROWTH OBTAINED AFTER 48 HOURS, INCUBATION TO CONTINUE FOR 3 DAYS. 06/20/18 14:10 Nasopharyngeal Swab Influenza Types A,B Antigen - Final 06/20/18 14:10 Nasopharyngeal Swab - Final 06/19/18 10:40 Urine - Urine Clean Catch Urine Culture - Final 06/19/18 11:40 Blood - Peripheral Venous Blood Parasites Smear - Final ASSESSMENT AND PLAN: 33 yof with LLL CAP/sepsis -LL CAP with sepsis Plan: Fevers improved. Ceftriaxone/azithromycin day 3. Blood cx neg so far. Flu swab neg. Check urine PNA studies. Dispo d/c in 24 hours on po abx if continues to improve. Plan discussed with patient in detail, all questions answered.
--- NOTE | 2018-06-21 19:04 | PN ---
Physical Exam: SUBJECTIVE: Patient seen and examined at bedside this morning. No febrile episodes after 10pm last night. Patient has no complaints. OBJECTIVE: Vital Signs Period Temp Pulse Resp BP Sys/Husain Pulse Ox Last 24 Hr 98.4 F-100.4 F 80-104 18-20 117-130/74-87 96-99 GENERAL: The patient is awake, alert, and fully oriented, in no acute distress. HEAD: Normal with no signs of trauma. EYES: PERRLA, EOMI, sclera anicteric, conjunctiva clear. ENT: Ears normal, nares patent, oropharynx clear without exudates, moist mucous membranes. NECK: Trachea midline, full range of motion, supple. LUNGS: Breath sounds equal, clear to auscultation bilaterally. HEART: Regular rate and rhythm, S1, S2 without murmur, rub or gallop. ABDOMEN: Soft, nontender, nondistended, normoactive bowel sounds. EXTREMITIES: 2+ pulses, warm, well-perfused, no edema. NEUROLOGICAL: Cranial nerves II through XII grossly intact. Normal speech, gait not observed. PSYCH: Normal mood, normal affect. SKIN: Warm, dry, normal turgor, no rashes or lesions noted Laboratory Results - last 24 hr 06/20/18 06/21/18 06/21/18 19:05 07:20 07:20 WBC 4.8 RBC 5.16 Hgb 13.9 Hct 41.3 MCV 80.2 MCH 26.9 MCHC 33.5 RDW 13.3 Plt Count 117 L MPV 9.6 Absolute Neuts (auto) 2.1 Neutrophils % 43.1 D Lymphocytes % 37.8 D Monocytes % 16.3 H Eosinophils % 2.2 D Basophils % 0.6 Nucleated RBC % 0 Sodium 140 Potassium 4.3 Chloride 107 Carbon Dioxide 30 Anion Gap 3 L BUN 9 Creatinine 0.8 Creat Clearance w eGFR > 60 Random Glucose 93 Calcium 8.8 HIV 1&2 Antibody Screen Negative HIV P24 Antigen Negative Active Medications Generic Name Dose Route Start Last Admin Trade Name Freq PRN Reason Stop Dose Admin Acetaminophen 650 mg 06/19/18 14:30 06/20/18 23:16 Tylenol - PO 650 mg Q4H PRN Administration FEVER Ceftriaxone Sodium 2 gm/ 100 mls @ 200 mls/hr 06/20/18 10:00 06/21/18 12:22 Dextrose IVPB 200 mls/hr DAILY COOPER Administration Protocol Azithromycin 500 mg in 250 mls @ 250 mls/hr 06/20/18 12:00 06/21/18 10:46 Zithromax 500mg Ivpb (Pre-Docked) IVPB 250 mls/hr DAILY COOPER Administration Sodium Chloride 1,000 mls @ 100 mls/hr 06/20/18 14:00 06/21/18 14:00 Normal Saline - IV Not Given ASDIR COOPER Imaging Chest xray - Questionable atelectasis or early infiltrate left mid and lower lung field. ASSESSMENT/PLAN: Patient is a 33 year old male with no past medical history presents to the hospital for 4 days of fevers, chills, lower back pain and dry, nonproductive cough. #Sepsis 2/2 Community Acquired Pneumonia: Fever and tachycardia -Chest xray - questionable atelectasis or early infiltrate left mid and lower lung field. -Ceftriaxone 2gm and Azithromycin 500mg daily day 3 -Blood cultures, sputum cultures done - negative -IV NS @100ml/hr. -Influenza swab - negative -Tylenol PRN for fevers. #FEN -IV NS @ 100cc/hr -lytes normal, routine bmp monitoring -regular diet #Prophylaxis -early ambulation #Disposition -admit med surg -For discharge tomorrow if patient remains afebrile. Visit type - Emergency Visit Emergency Visit: Yes ED Registration Date: 06/19/18 Care time: The patient presented to the Emergency Department on the above date and was hospitalized for further evaluation of their emergent condition. - New Patient This patient is new to me today: Yes Date on this admission: 06/21/18 - Critical Care Critical Care patient: No
[2018-06-22] MEDS ORDERED: PT OWN MED DRAWER 7, Y5N ONE (09:30)
[2018-06-22] MEDS: AZITHROMYCIN IVPB 500 MG/250 ML BAG IVPB SCH (09:38)
[2018-06-22] MEDS: CEFTRIAXONE 2 GM in DEXTROSE 5%-WATER 100 ML IVPB SCH (11:54)
[2018-06-22] MEDS: SODIUM CHLORIDE 1,000 ML IV SCH (13:50)
--- NOTE | 2018-06-22 14:24 | PN ---
Teaching Attending Note Name of Resident: Scarlett Novak ATTENDING PHYSICIAN STATEMENT I saw and evaluated the patient. I reviewed the resident's note and discussed the case with the resident. I agree with the resident's findings and plan as documented with exceptions below. SUBJECTIVE: Patient seen and examined. no complaints, feeling well. OBJECTIVE: Vital Signs Period Temp Pulse Resp BP Sys/Husain Pulse Ox Last 24 Hr 97.8 F-99.2 F 77-83 18-20 119-146/74-88 97 Intake & Output 06/19/18 06/20/18 06/21/18 06/22/18 23:59 23:59 23:59 23:59 Intake Total 2380 3560 1550 Balance 2380 3560 1550 Weight 147 lb General: sitting in bed in no acute distress Chest: CTAB, no rales or wheezing Active Medications Acetaminophen (Tylenol -) 650 mg PO Q4H PRN PRN Reason: FEVER Last Admin: 06/20/18 23:16 Dose: 650 mg Ceftriaxone Sodium 2 gm/ (Dextrose) 100 mls @ 200 mls/hr IVPB DAILY COOPER; Protocol Last Admin: 06/22/18 11:54 Dose: 200 mls/hr Azithromycin (Zithromax 500mg Ivpb (Pre-Docked)) 500 mg in 250 mls @ 250 mls/ hr IVPB DAILY COOPER Last Admin: 06/22/18 09:38 Dose: 250 mls/hr Sodium Chloride (Normal Saline -) 1,000 mls @ 100 mls/hr IV ASDIR COOPER Last Admin: 06/22/18 13:50 Dose: Not Given ASSESSMENT AND PLAN: 33 yof with LLL CAP/sepsis -LL CAP with sepsis Plan: afebrile improved. Transition to cefuroxime/azithromycin. d/c home with outpatient follow up and CXR in 4-6 weeks. Plan discussed with patient in detail, all questions answered.
[2018-06-22 14:27] VITALS: BP 126/83; PULSE 76
[2018-06-22 15:01] VITALS: TEMP 98.8
--- NOTE | 2018-06-22 15:53 | DS ---
Physical Exam: SUBJECTIVE: Patient seen and examined at bedside this morning. No acute events overnight. Patient has no new complaints. Denies chest pain, SOB, palpitations, abdominal pain, urinary symptoms, fevers, chills, headaches. OBJECTIVE: Vital Signs Period Temp Pulse Resp BP Sys/Husain Pulse Ox Last 24 Hr 97.8 F-98.8 F 76-83 18-20 119-146/77-88 97 PHYSICAL EXAM GENERAL: The patient is awake, alert, and fully oriented, in no acute distress. HEAD: Normal with no signs of trauma. EYES: PERRLA, EOMI, sclera anicteric, conjunctiva clear. ENT: Ears normal, nares patent, oropharynx clear without exudates, moist mucous membranes. NECK: Trachea midline, full range of motion, supple. LUNGS: Breath sounds equal, clear to auscultation bilaterally. HEART: Regular rate and rhythm, S1, S2 without murmur, rub or gallop. ABDOMEN: Soft, nontender, nondistended, normoactive bowel sounds. EXTREMITIES: 2+ pulses, warm, well-perfused, no edema. NEUROLOGICAL: Cranial nerves II through XII grossly intact. Normal speech, gait not observed. PSYCH: Normal mood, normal affect. SKIN: Warm, dry, normal turgor, no rashes or lesions noted LABS CBC, BMP 06/21/18 07:20 06/21/18 07:20 Imaging Chest xray - Questionable atelectasis or early infiltrate left mid and lower lung field. HOSPITAL COURSE: Date of Admission:06/19/18 Date of Discharge: 06/22/18 Patient is a 33 year old male with no past medical history presents to the hospital for 4 days of fevers, chills, lower back pain and dry, nonproductive cough. Patient was admitted for sepsis secondary to community acquired pneumonia. Chest xray done, sputum cultures and blood cultures were negative. Influenza swab negative. Patient was started on Ceftriaxone 2gm and Azithromycin 500mg daily. He completed 4 doses at the hospital. Patient was discharged with instructions to continue Azithromycin 500mg for 1 more day and Cefuroxime 500mg BID for 4 days, and to follow-up with PCP. Minutes to complete discharge: 40 Discharge Summary Reason For Visit: FEVER, SEPSIS,PNEUMONIA Condition: Improved - Instructions Diet, Activity, Other Instructions: You were admitted because you were having fevers, chills and cough. You were diagnosed with Pneumonia. You were treated with IV antibiotics to which you responded well. You will continue the following antibiotics as instructed: 1. Azithromycin 500mg once, which you will take tomorrow. 2. Cefuroxime 500mg twice a day for 4 days. Please follow-up with your primary care doctor in 1 week. Follow up Chest Xray with your doctor in 4-6 weeks. Drink plenty of water and eat a high fiber diet. Call 911 or go the ED if with any worsening fever, chills, shortness of breath or any new concerns noted. Disposition: HOME - Home Medications Comprehensive Discharge Medication List: Ambulatory Orders Acetaminophen [Tylenol .Regular Strength -] 650 mg PO Q4H PRN tablet 06/22/18 Azithromycin 500 mg PO DAILY #1 tablet 06/22/18 Cefuroxime Axetil [Cefuroxime] 500 mg PO BID #8 tablet 06/22/18 This patient is new to me today: Yes Date on this admission: 06/24/18 Emergency Visit: Yes ED Registration Date: 06/19/18 Care time: The patient presented to the Emergency Department on the above date and was hospitalized for further evaluation of their emergent condition. Critical Care patient: No - Discharge Referral Referred to [facility] Med P.C.: No
== END 2018-06-22 15:34 | disposition home or self-care (01) | DRG 720 ==
LOC: JER 09:30 → JERBED 10:34 → J5S 20:34
PROVIDERS: ADMIT Internal Medicine; ATTEND Hospitalist
DX: A41.9 Sepsis, unspecified organism (principal); J18.9 Pneumonia, unspecified organism; R00.0 Tachycardia, unspecified
CPT/HCPCS: 36415; 71046-TC-FY; 80048; 80053; 81003; 81015; 82803; 83605; 83690; 84484; 85025; 85027; 85610; 86618; 87040; 87070; 87086; 87205; 87207; 87389; 87804; 87899; 93005; 93010; 94761; 99283-25; J0131; J7030

== ENCOUNTER 2019-05-04 02:38 | Inpatient (IN) | payer SELFPAY ==
[2019-05-04] MEDS ORDERED: ACETAMINOPHEN 325 MG TABLET (FP) PO ONE (03:35)
[2019-05-04] MEDS ORDERED: IBUPROFEN 600 MG TABLET (FP) PO ONE ×3 (03:38→15:16)
--- NOTE | 2019-05-04 03:39 | PDOC ---
Attending Attestation - Resident Resident Name: Ladan Pickering - ED Attending Attestation I have performed the following: I have examined & evaluated the patient, The case was reviewed & discussed with the resident, I agree w/resident's findings & plan
[2019-05-04] MEDS ORDERED: ACETAMINOPHEN 325 MG TABLET (FP) ONE (03:40)
[2019-05-04] MEDS ORDERED: SODIUM CHLORIDE IV ONE (03:46)
[2019-05-04 04:20] LABS: BASO % 0.5 % (0-2.0); EOS % 0.4 % (0-4.5); HEMATOCRIT 43.9 % (35.4-49); HEMOGLOBIN 14.9 GM/dL (11.7-16.9); LYMPH % 10.7 % (8-40); MCH 27.9 pg (25.7-33.7); MCHC 33.9 g/dl (32.0-35.9); MEAN CELL VOLUME 82.2 fl (80-96); MEAN PLT VOLUME 9.8 fl (7.5-11.1); MONO % 9.8 % (3.8-10.2); NEUT % 78.6 % (42.8-82.8); PLATELET COUNT 134 K/MM3 (134-434); RBC 5.34 M/mm3 (4.00-5.60); RDW 13.1 % (11.9-15.9); WHITE BLOOD COUNT 14.8 K/mm3 (4.0-10.0)
[2019-05-04 04:36] LABS: INR 1.23 (0.83-1.09); PROTHROMBIN TIME (PATIENT) 14.6 SEC (9.7-13.0)
[2019-05-04 04:53] LABS: BILIRUBIN,TOTAL 0.5 mg/dL (0.2-1); BLOOD UREA NITROGEN 13.9 mg/dL (7-18); CALCIUM 8.9 mg/dL (8.5-10.1); POTASSIUM 4.3 mmol/L (3.5-5.1); TOT PROT 7.3 g/dl (6.4-8.2)
[2019-05-04] MEDS ORDERED: CEFTRIAXONE 1,000 MG in DEXTROSE 5%-WATER - 50 ML IVPB ONE (05:27)
[2019-05-04] MEDS ORDERED: AZITHROMYCIN IVPB 500 MG in DEXTROSE 5%-WATER - 250 ML IVPB ONE (05:27)
[2019-05-04] MEDS ORDERED: CEFTRIAXONE 1 GM/50 ML BAG ONE (05:38)
--- NOTE | 2019-05-04 05:47 | PDOC ---
History of Present Illness - General Chief Complaint: Cold Symptoms Stated Complaint: FEVER Time Seen by Provider: 05/04/19 03:34 History Source: Patient Exam Limitations: No Limitations - History of Present Illness Initial Comments: Pt is a 33 yo M, with PMH of pneumonia, who is presenting with complaints of fever and generalized fatigue x2 days. Pt was admitted 06/2018 with b/l pneumonia, and pt states he feels similar to that time (blood cultures negative , legionella negative). 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 He came from [place] in 2004. Pt has been eating and drinking without difficulty. Pt denies any headache, neck stiffness, light sensitivity, vision changes, syncope, chest pain, palpitations, SOB, cough , nausea/vomiting, abdominal pain, urinary symptoms, diarrhea/constipation, or leg swelling. Allergies: NKDA PCP: None Social: Pt denies any cigarette, alcohol, or drug use. Pt denies any recent travel or sick contacts. Surgical: no relevant history. Family: no relevant history. 05/04/19 05:38 Past History - Travel Traveled outside of the country in the last 30 days: No Close contact w/someone who was outside of country & ill: No - Past Medical History Allergies/Adverse Reactions: Allergies Allergy/AdvReac Type Severity Reaction Status Date / Time No Known Allergies Allergy Verified 05/04/19 02:50 Home Medications: Ambulatory Orders Acetaminophen [Tylenol .Regular Strength -] 650 mg PO Q4H PRN tablet 06/22/18 COPD: No - Immunization History Immunization Up to Date: No - Suicide/Smoking/Psychosocial Hx Smoking History: Never smoked Have you smoked in the past 12 months: No Information on smoking cessation initiated: No Hx Alcohol Use: No Drug/Substance Use Hx: No Substance Use Type: None Review of Systems - Review of Systems Able to Perform ROS?: Yes Is the patient limited Lebanese proficient: No Constitutional: Yes: Chills, Diaphoresis, Fever, Malaise, Weight Stable. No: Loss of Appetite, Weakness HEENTM: No: Blurred Vision, Double Vision, Nose Congestion, Throat Pain, Throat Swelling, Difficulty Swallowing Respiratory: No: Cough, Orthopnea, Shortness of Breath, Productive cough, Hemoptysis Cardiac (ROS): No: Chest Pain, Edema, Irregular Heart Rate, Lightheadedness, Palpitations, Syncope, Chest Tightness ABD/GI: No: Constipated, Diarrhea, Nausea, Poor Appetite, Poor Fluid Intake, Vomiting, Abdominal cramping : No: Burning, Dysuria, Frequency, Flank Pain, Pain, Urgency Musculoskeletal: No: Back Pain, Joint Pain, Muscle Pain, Muscle Weakness Integumentary: No: Rash Neurological: No: Headache, Weakness, Unsteady Gait, Dizziness Psychiatric: No: Sleep Pattern Change, Change in Appetite Endocrine: No: Increased Urine, Change in Weight Hematologic/Lymphatic: No: Anemia, Blood Clots, Easy Bleeding, Easy Bruising All Other Systems: Reviewed and Negative *Physical Exam - Vital Signs Last Vital Signs Temp Pulse Resp BP Pulse Ox 100.4 F H 88 20 125/71 97 05/04/19 04:19 05/04/19 04:19 05/04/19 04:19 05/04/19 04:19 05/04/19 04:19 - Physical Exam Comments: Febrile, tachycardic, 96% on RA. Pt appears ill, thin body habitus. Pt alert and oriented x3. phys asst generally intact, muscular strength and sensation intact. No neck rigidity or withdrawal from light source. No midline spinal tenderness, step-offs, or crepitus. Head normocephalic, atraumatic. Eyes PERRLA, EOMI. Oropharynx with mild tonsillar erythema, but without exudates, no LAD b/l. No nasal congestion, hearing intact. Clear heart sounds, S1/S2, no JVD, b/l pedal edema, or heart murmur. Coarse lung sounds b/l lower bases, worst on LLL. No respiratory distress, wheezes, crackles, or accessory muscle use. No abdominal or CVA tenderness to palpation, no rebound, no guarding. Abdomen soft, non-distended, and with normoactive bowel sounds. Skin without jaundice or rash. 05/04/19 05:48 ED Treatment Course - LABORATORY CBC & Chemistry Diagram: 05/04/19 04:00 05/04/19 04:00 - ADDITIONAL ORDERS Additional order review: Laboratory Results 05/04/19 05/04/19 05/04/19 04:00 04:00 04:00 PT with INR 14.60 H INR 1.23 H Sodium 140 Potassium 4.3 Chloride 106 Carbon Dioxide 27 Anion Gap 8 BUN 13.9 Creatinine 1.0 Est GFR (CKD-EPI)AfAm 115.72 Est GFR (CKD-EPI)NonAf 99.85 Random Glucose 105 Lactic Acid 0.7 Calcium 8.9 Total Bilirubin 0.5 AST 32 ALT 33 Alkaline Phosphatase 91 Total Protein 7.3 Albumin 4.0 05/04/19 04:00 RBC 5.34 MCV 82.2 MCHC 33.9 RDW 13.1 MPV 9.8 Neutrophils % 78.6 D Lymphocytes % 10.7 D Monocytes % 9.8 Eosinophils % 0.4 D Basophils % 0.5 - RADIOLOGY Radiology Studies Ordered: Category Date Time Status HEAD CT WITHOUT CONTRAST [CT] Stat CT Scan 05/04/19 04:10 Taken CHEST PA & LAT [RAD] Stat Radiology 05/04/19 03:48 Taken - Medications Given in the ED: ED Medications Discontinued Medications Generic Name Dose Route Start Last Admin Trade Name Freq PRN Reason Stop Dose Admin Acetaminophen 650 mg 05/04/19 03:35 05/04/19 03:30 Tylenol - PO 05/04/19 03:36 650 mg ONCE ONE Administration Ibuprofen 600 mg 05/04/19 03:38 05/04/19 03:50 Motrin - PO 05/04/19 03:39 600 mg ONCE ONE Administration Medical Decision Making - Critical Care Time Total Critical Care Time (minutes): 25 - Medical Decision Making Pt was seen at bedside, also will be seen by attending Dr. Jefferson. Pt presenting with complaints of fever and fatigue. PE showed coarse breath sounds b/l bases, prior admission for pneumonia. Sepsis w/u ordered, chest x-ray, ECG. Provided 1 g IV ofirmev and sepsis fluids. Will continue to reassess pt and monitor for symptomatic improvement. 05/04/19 06:03 Pt had short episode ~3 seconds of pre-syncopal episode (eyes deviated, shaking) , but with no post-ictal period or tongue biting. Ordered CT head, which showed no acute pathology or mass. CBC: WBC 14 CMP and coags WNL lactic 1.7 Chest x-ray shows coarse infiltrate in LL base. Providing 1 g IV ceftriaxone and 500 mg IV azithromycin to cover for pneumonia. Pending UA and influenza test. Pt admitted to hospitalist team (Dr. Wray). 05/04/19 06:07 *DC/Admit/Observation/Transfer Diagnosis at time of Disposition: Pneumonia Qualifiers: Pneumonia type: due to unspecified organism Laterality: left Lung location: lower lobe of lung Qualified Code(s): J18.1 - Lobar pneumonia, unspecified organism Leukocytosis Qualifiers: Leukocytosis type: unspecified Qualified Code(s): D72.829 - Elevated white blood cell count, unspecified Fever Qualifiers: Fever type: unspecified Qualified Code(s): R50.9 - Fever, unspecified - Discharge Dispostion Condition at time of disposition: Stable Decision to Admit order: Yes Decision to Admit order Date/Time: Decision to Admit Order Category Date Time Status Decision to Admit to Hospital Routine Admission 05/04/19 05:30 Active - Referrals - Patient Instructions - Post Discharge Activity
--- NOTE | 2019-05-04 06:13 | HP ---
CHIEF COMPLAINT: fever and chills PCP: none HISTORY OF PRESENT ILLNESS: Patient is a 33 y/o male with no past medical history who presents for fever and chills. Patient was recently admitted in June for LLL pneumonia. Patient reports his symptoms began yesterday with a sore throat. He took two tylenol for the fever which helped his fever but only temporarily. He denies any cough, sputum production, shortness of breath, or trouble breathing. Patient has no recent sick contacts. Patient works at a car wash. Patient had one sexual contact with a woman three weeks ago. Patient denies any changes in his routine , denies any change in his appetite. Patient denies night sweats , but does think he has lost about 3 pounds recently. Patient denies nausea, vomiting, diarrhea, or chest pain. Patient moved from [facility] from [facility]. While in the ED, resident noted a couple seconds of eye deviation and shaking, but without post ictal state. Patient had head CT that was negative. [employer] [id number] used. ER course was notable for: (1)Ceftriaxone and Azythromycin (2) (3) Recent Travel: denies PAST MEDICAL HISTORY: none PAST SURGICAL HISTORY: none Social History: Smoking: denies ( never) Alcohol: denies Drugs: denies Family History: denies Allergies No Known Allergies Allergy (Verified 05/04/19 02:50) HOME MEDICATIONS: Home Medications Medication Instructions Recorded Acetaminophen [Tylenol .Regular 650 mg PO Q4H PRN tablet 06/22/18 Strength -] REVIEW OF SYSTEMS CONSTITUTIONAL: fever, chills , generalized weakness Absent: diaphoresis, malaise, loss of appetite, weight change HEENT: Absent: rhinorrhea, nasal congestion, throat pain, throat swelling, difficulty swallowing, mouth swelling, ear pain, eye pain, visual changes CARDIOVASCULAR: Absent: chest pain, syncope, palpitations, irregular heart rate, lightheadedness , peripheral edema RESPIRATORY: Absent: cough, shortness of breath, dyspnea with exertion, orthopnea, wheezing, stridor, hemoptysis GASTROINTESTINAL: Absent: abdominal pain, abdominal distension, nausea, vomiting, diarrhea, constipation, melena, hematochezia GENITOURINARY: Absent: dysuria, frequency, urgency, hesitancy, hematuria, flank pain, genital pain MUSCULOSKELETAL: Absent: myalgia, arthralgia, joint swelling, back pain, neck pain SKIN: Absent: rash, itching, pallor HEMATOLOGIC/IMMUNOLOGIC: Absent: easy bleeding, easy bruising, lymphadenopathy, frequent infections ENDOCRINE: Absent: unexplained weight gain, unexplained weight loss, heat intolerance, cold intolerance NEUROLOGIC: Absent: headache, focal weakness or paresthesias, dizziness, unsteady gait, seizure, mental status changes, bladder or bowel incontinence PSYCHIATRIC: Absent: anxiety, depression, suicidal or homicidal ideation, hallucinations. PHYSICAL EXAMINATION Vital Signs - 24 hr 05/04/19 05/04/19 02:48 04:19 Temperature 101.0 F H 100.4 F H Pulse Rate 104 H 88 Respiratory 20 20 Rate Blood Pressure 135/85 125/71 O2 Sat by Pulse 96 97 Oximetry (%) GENERAL: Awake, alert, and fully oriented, in no acute distress.Warm to touch EYES: Pupils equal, round and reactive to light, extraocular movements intact, sclera anicteric, conjunctiva clear. EARS, NOSE, THROAT: Mild erythema in pharynx, Moist mucous membranes. LUNGS: Breath sounds equal, clear to auscultation bilaterally. No wheezes. No accessory muscle use. Mild crackles in left lower base HEART: Regular rate and rhythm, normal S1 and S2 without murmur, rub or gallop. ABDOMEN: Soft, nontender, not distended, normoactive bowel sounds, no guarding, no rebound, no masses. MUSCULOSKELETAL: Normal range of motion at all joints. LOWER EXTREMITIES: 2+ pulses, warm, well-perfused. No calf tenderness. No peripheral edema. SKIN: Warm, dry, normal turgor, no rashes or lesions noted, normal capillary refill. CBC, BMP 05/04/19 04:00 05/04/19 04:00 ASSESSMENT/PLAN: Patient is a 33 y/o male with no past medical history who presents for fever and chills. #SIRS, fever and chills - likely 2/2 to PNA, possible new infiltrate on CXR - continue to monitor WBC daily - patient given Ceftriaxone and Azithromycin in ED QTC 373 - tylenol as needed for fever - NS @ 100 - urine legionella and pneumonia, f/u sputum CX - f/u UA to r/o UTI - HIV negative in June, patient amenable to retesting - f/u influenza pending, f/u blood cx - f/u RSV panel, hepatitis, HIV, ESR, CRP, quantifieron testing - continue abx q24h for 6 am tomorrow #one time eye deviation with shaking - Head CT: no acute pathology or masses - seizure precautions implemented - f/u urine tox screen - negative for any neuro history #DVT ppx - lovenox 40 daily FEN - NS @ 100 - regular diet Dispo: continue antibiotics and monitor on med/surg Visit type - Emergency Visit Emergency Visit: Yes ED Registration Date: 05/04/19 Care time: The patient presented to the Emergency Department on the above date and was hospitalized for further evaluation of their emergent condition. - New Patient This patient is new to me today: Yes Date on this admission: 05/05/19 - Critical Care Critical Care patient: No ATTENDING PHYSICIAN STATEMENT I saw and evaluated the patient. I reviewed the resident's note and discussed the case with the resident. I agree with the resident's findings and plan as documented. SUBJECTIVE: OBJECTIVE: ASSESSMENT AND PLAN:
[2019-05-04] MEDS ORDERED: LACTATED RINGERS SOLUTION 1,000 ML IV SCH (06:15)
[2019-05-04] MEDS ORDERED: SODIUM CHLORIDE 1,000 ML IV SCH (06:15)
[2019-05-04] MEDS ORDERED: AZITHROMYCIN IVPB 500 MG/250 ML BAG IVPB ONE (06:19)
[2019-05-04 06:57] LABS: PH,URINE 5.5 (5.0-8.0); URINE APPEARANCE CLOUDY; URINE BILIRUBIN NEGATIVE (NEGATIVE); URINE COLOR YELLOW; URINE GLUCOSE (UA) NEGATIVE (NEGATIVE); URINE KETONE TRACE (NEGATIVE); URINE PROTEIN 100 (NEGATIVE)
[2019-05-04 06:58] LABS: EPI CELLS 8.1 /HPF (0-5/HPF); URINE BACTERIA 6.6 /hpf (NEGATIVE); URINE LEUK ESTERASE NEGATIVE (NEGATIVE); URINE NITRITE NEGATIVE (NEGATIVE); URINE RBC 2.1 /hpf (0-4); URINE WBC 0.7 /hpf (0-5)
[2019-05-04] MEDS: ENOXAPARIN NA (PORCINE) 40 MG/0.4 ML DISP.SYRIN SQ SCH (10:34)
--- NOTE | 2019-05-04 11:37 | EKG ---
Test Reason : Blood Pressure : / mmHG Vent. Rate : 066 BPM Atrial Rate : 066 BPM P-R Int : 128 ms QRS Dur : 098 ms QT Int : 356 ms P-R-T Axes : 000 028 018 degrees QTc Int : 373 ms NORMAL SINUS RHYTHM WITH SINUS ARRHYTHMIA NORMAL ECG WHEN COMPARED WITH ECG OF 19-JUN-2018 10:01, VENT. RATE HAS DECREASED BY 61 BPM Confirmed by ALFONSO RIGGINS MD ([id number]) on 05/04/2019 11:36:59 AM Referred By: Confirmed By:ALFONSO RIGGINS MD
[2019-05-04 12:05] LABS: BASO % 0.1 % (0-2.0); EOS % 0.2 % (0-4.5); HEMATOCRIT 42.1 % (35.4-49); HEMOGLOBIN 14.2 GM/dL (11.7-16.9); LYMPH % 15.8 % (8-40); MCH 27.8 pg (25.7-33.7); MCHC 33.7 g/dl (32.0-35.9); MEAN CELL VOLUME 82.6 fl (80-96); MEAN PLT VOLUME 10.3 fl (7.5-11.1); MONO % 8.5 % (3.8-10.2); NEUT % 75.4 % (42.8-82.8); PLATELET COUNT 117 K/MM3 (134-434); RDW 13.3 % (11.9-15.9); WHITE BLOOD COUNT 14.1 K/mm3 (4.0-10.0)
[2019-05-04 12:25] LABS: ALBUMIN 3.7 g/dl (3.4-5.0); BILIRUBIN,TOTAL 0.6 mg/dL (0.2-1); BLOOD UREA NITROGEN 10.3 mg/dL (7-18); CALCIUM 8.7 mg/dL (8.5-10.1); CREATININE 0.8 mg/dL (0.55-1.3); POTASSIUM 4.2 mmol/L (3.5-5.1)
--- NOTE | 2019-05-04 12:48 | PN ---
Physical Exam: SUBJECTIVE: 33 y/o M whom denies PMH presented to the ED w fever and chills and significant VS seen at bedside today. His current complaints are sore throat, fever, and chills. In the ED he received acetominophen, ceftriaxone, and azythromycin. Symptoms resolved on the unit except for sore throat. Pt works at a [employer] and often plays soccer at [facility] in [place]. He denies any insect and tick bites, cough, CP, SOB, new foods, recent travel, and sick contacts. Pt moved from [facility] from 2002. Last sexual contact was 3 weeks ago and pt denies penile d/c, dysuria, rashes, and any other skin changes. Pt reports 3 lbs weight loss over last month, regular cardio exercise, no change in appetite, and no night sweats. No neck stiffness and photophobia. Pt denies NVD. OBJECTIVE: Vital Signs Temp Pulse Resp BP Pulse Ox 98.3 F 72 20 121/77 99 05/04/19 06:27 05/04/19 06:27 05/04/19 06:27 05/04/19 06:27 05/04/19 07:42 GENERAL: The patient is awake, alert, and fully oriented, in no acute distress. Kyrgyz speaking only. HEAD: NCAT EYES: HUMBERTO, EOMI, sclera anicteric, conjunctiva clear. No ptosis. ENT: Ears normal, nares patent, oropharynx CLEAR, NO exudates, moist mucous membranes. NECK: Trachea midline, full range of motion, supple. LUNGS: Breath sounds equal, clear to auscultation bilaterally, no wheezes, no crackles, no accessory muscle use. HEART: Regular rate and rhythm, S1, S2 without murmur, rub or gallop. ABDOMEN: Soft, nontender, nondistended, normoactive bowel sounds, no guarding, no rebound, no hepatosplenomegaly, no masses. EXTREMITIES: 2+ pulses, warm, well-perfused, no edema. NEUROLOGICAL: Cranial nerves III-XII grossly intact. Normal speech, gait not appreciated, no pronator drift, no dysmetria, strength and sensation equal in all 4 extremities PSYCH: Normal mood, normal affect. SKIN: Warm, dry, normal turgor, no rashes or lesions noted Laboratory Results - last 24 hr 05/04/19 05/04/19 05/04/19 04:00 04:00 04:00 WBC 14.8 H RBC 5.34 Hgb 14.9 Hct 43.9 MCV 82.2 MCH 27.9 MCHC 33.9 RDW 13.1 Plt Count 134 MPV 9.8 Absolute Neuts (auto) 11.6 H Neutrophils % 78.6 D Lymphocytes % 10.7 D Monocytes % 9.8 Eosinophils % 0.4 D Basophils % 0.5 Nucleated RBC % 0 PT with INR INR Sodium 140 Potassium 4.3 Chloride 106 Carbon Dioxide 27 Anion Gap 8 BUN 13.9 Creatinine 1.0 Est GFR (CKD-EPI)AfAm 115.72 Est GFR (CKD-EPI)NonAf 99.85 Random Glucose 105 Lactic Acid 0.7 Calcium 8.9 Total Bilirubin 0.5 AST 32 ALT 33 Alkaline Phosphatase 91 Total Protein 7.3 Albumin 4.0 Urine Color Urine Appearance Urine pH Ur Specific Nichols Urine Protein Urine Glucose (UA) Urine Ketones Urine Blood Urine Nitrite Urine Bilirubin Urine Urobilinogen Ur Leukocyte Esterase Urine WBC (Auto) Urine RBC (Auto) Urine Casts (Auto) U Pathogenic Cast Auto U Epithel Cells (Auto) Urine Bacteria (Auto) Influenza A (Rapid) Influenza B (Rapid) 05/04/19 05/04/19 05/04/19 04:00 04:30 05:05 WBC RBC Hgb Hct MCV MCH MCHC RDW Plt Count MPV Absolute Neuts (auto) Neutrophils % Lymphocytes % Monocytes % Eosinophils % Basophils % Nucleated RBC % PT with INR 14.60 H INR 1.23 H Sodium Potassium Chloride Carbon Dioxide Anion Gap BUN Creatinine Est GFR (CKD-EPI)AfAm Est GFR (CKD-EPI)NonAf Random Glucose Lactic Acid Calcium Total Bilirubin AST ALT Alkaline Phosphatase Total Protein Albumin Urine Color Yellow Urine Appearance Cloudy Urine pH 5.5 D Ur Specific Nichols 1.049 H Urine Protein 100 Urine Glucose (UA) Negative Urine Ketones Trace H Urine Blood Negative Urine Nitrite Negative Urine Bilirubin Negative Urine Urobilinogen 1.0 Ur Leukocyte Esterase Negative Urine WBC (Auto) 0.7 Urine RBC (Auto) 2.1 Urine Casts (Auto) 49.50 U Pathogenic Cast Auto Negative U Epithel Cells (Auto) 8.1 Urine Bacteria (Auto) 6.6 Influenza A (Rapid) Negative Influenza B (Rapid) Negative 05/04/19 05/04/19 10:10 10:10 WBC 14.1 H RBC 5.10 Hgb 14.2 Hct 42.1 MCV 82.6 MCH 27.8 MCHC 33.7 RDW 13.3 Plt Count 117 L MPV 10.3 Absolute Neuts (auto) 10.6 H Neutrophils % 75.4 Lymphocytes % 15.8 D Monocytes % 8.5 Eosinophils % 0.2 Basophils % 0.1 Nucleated RBC % 0 PT with INR INR Sodium 144 Potassium 4.2 Chloride 109 H Carbon Dioxide 27 Anion Gap 8 BUN 10.3 Creatinine 0.8 Est GFR (CKD-EPI)AfAm 137.96 Est GFR (CKD-EPI)NonAf 119.03 Random Glucose 85 Lactic Acid Calcium 8.7 Total Bilirubin 0.6 AST 26 ALT 34 Alkaline Phosphatase 79 Total Protein 7.0 Albumin 3.7 Urine Color Urine Appearance Urine pH Ur Specific Nichols Urine Protein Urine Glucose (UA) Urine Ketones Urine Blood Urine Nitrite Urine Bilirubin Urine Urobilinogen Ur Leukocyte Esterase Urine WBC (Auto) Urine RBC (Auto) Urine Casts (Auto) U Pathogenic Cast Auto U Epithel Cells (Auto) Urine Bacteria (Auto) Influenza A (Rapid) Influenza B (Rapid) Active Medications Acetaminophen (Tylenol -) 650 mg PO Q4H PRN PRN Reason: PAIN OR FEVER Enoxaparin Sodium (Lovenox -) 40 mg SQ DAILY COOPER Last Admin: 05/04/19 10:34 Dose: 40 mg ASSESSMENT/PLAN: 33 y/o M whom denies PMH and presented to the ED w fever and chills, admitted for SIRS. In ED pt noted to have eye deviation for 3 seconds after blood draw, likely vasovagal response, CT head NEG. Pharyngitis endorsed today. 1. SIRS- possible acute pharyngitis. CT chest/abdomen/pelvis done with no acute pathology. will check rapid strep panel although received ceftriaxone which may alter results. check HIV, tick borne illnesses. CXR and UA are negative. received ceftriaxone and azithro in the ER. will hold further abx at this time. f/u Cx 2. Unresponsive with eye deviation- noted to occur after blood draw and pt admits to having fear of blood. Head CT was negative. no focal deficits and no repeat episodes. will just monitor for now # SIRS + pharyngitis - VSS during AM rounds - No significant findings on physical exam - s/p Tylenol for fever; Motrin added in PM for oral 102 degree oral reading - CXR: ?Vertical suture line in LEFT upper lobe - Cont. to monitor WBC - Urine legionella and pneumonia, f/u sputum CX - F/u ehrlichiosis, babesiosis, anaplasmosis, and lyme dz testing - F/u UA to r/o UTI - F/u influenza pending, f/u blood cx - F/u RSV panel, hepatitis, HIV, ESR, CRP, quantifieron testing - HIV negative in June, HIV here pending - Cont. abx q24h for 6 am tomorrow: ceftriaxone and azythromycin # Poss vasovagal episode in ED - NO PMH of seizure or neuro hx - CT head NEG - F/u urine tox screen # DVT prophylaxis - Lovenox 40 daily # F/E/N - NS - Monitor electrolytes - Regular diet # Dispositoin - Full code Chris Storey MD Visit type - Emergency Visit Emergency Visit: No - New Patient This patient is new to me today: No - Critical Care Critical Care patient: No - Discharge Referral Referred to [facility] No ATTENDING PHYSICIAN STATEMENT I saw and evaluated the patient. I reviewed the resident's note and discussed the case with the resident. I agree with the resident's findings and plan as documented. SUBJECTIVE: OBJECTIVE: ASSESSMENT AND PLAN:
--- NOTE | 2019-05-04 12:48 | PN ---
Teaching Attending Note Name of Resident: Chris Storey ATTENDING PHYSICIAN STATEMENT I saw and evaluated the patient. I reviewed the resident's note and discussed the case with the resident. I agree with the resident's findings and plan as documented. SUBJECTIVE:overall feels better but states that his throat continued to be sore. denies CP, SOB, cough, N/V/C/D, dysuria, penile discharge, rashes or tick or bug bites. does endorse [place] but has not seen or felt any bites. had new sexual encounter 3 weeks ago. OBJECTIVE: Last Vital Signs Temp Pulse Resp BP Pulse Ox 98.3 F 72 20 121/77 99 05/04/19 06:27 05/04/19 06:27 05/04/19 06:27 05/04/19 06:27 05/04/19 07:42 General NAD HEENT mild pharynx erythema more on L. no exudate, no oral ulcers, no lesions, no LN CV S1 S2 RRR no murmur/rub/gallop Lungs CTA B/L no wheezing/rales/rhonchi Abdomen soft NT/ND Extremities no pedal edema Skin no rashes or lesions Neuro CN II-XII grossly intact, no pronator drift, no dysmetria, strength and sensation equal in all 4 extremities ASSESSMENT AND PLAN: 33yo M with no PMH presented to the ER with subjective fevers and chills and phanryngitis and met SIRS criteria on arrival. during hospital course was noted to be unresponsive after blood draw 1. SIRS- possible acute pharyngitis. CT chest/abdomen/pelvis done with no acute pathology. will check rapid strep panel although received ceftriaxone which may alter results. check HIV, tick borne illnesses. CXR and UA are negative. received ceftriaxone and azithro in the ER. will hold further abx at this time. f/u Cx 2. Unresponsive with eye deviation- noted to occur after blood draw and pt admits to having fear of blood. Head CT was negative. no focal deficits and no repeat episodes. will just monitor for now 3. DVT ppx- hep sq
[2019-05-04] MEDS: ACETAMINOPHEN 325 MG TABLET (FP) PO PRN (13:44)
[2019-05-04 14:53] VITALS: BMI 27.5
[2019-05-04 16:07] LABS: ERYTHROCYTE SEDIMENTATION RATE 5 mm/hr (0-10)
[2019-05-04 19:47] VITALS: PULSE 74
--- NOTE | 2019-05-04 21:14 | PN ---
Teaching Attending Note Name of Resident: Magalie Almaraz ATTENDING PHYSICIAN STATEMENT I saw and evaluated the patient. I reviewed the resident's note and discussed the case with the resident. I agree with the resident's findings and plan as documented. *Late entry, original note not saved* Please see resident note for further history and physical. In summation, 33 y/ o male with no PMH presents to the ER with fever, suspected seizure, and potential PNA read on CXR documented in ER. He has no cough, SOB, and is not requiring O2 but is found to have mild R-sided abdominal pain to palpation on exam. He is hemodynamically stable. Questionable brief sz witnessed by staff but not post ictal and no loss bowel/bladder, etc; he has a fear of blood and endorses a vasovagal pattern. No hx and no further activity. Given fluids and broad spectrum abx; additional imaging pending. When I saw him after the resident I requested abdominal scan due to exam findings. Empiric coverage given ; can monitor off abx and consider ID consult. No risk of MDROs. VS labs imaging reviewed NAD, AAO, warm, diaphoretic RRR s1/2 no mgr Mild R-tender, ND, +BS CN2-12 wnl, no meningeal signs No rashes, bites, abbrasions Normal mood, appropriate behavior ASSESSMENT AND PLAN: Patient is SIRS+ without clear source (additional imaging pending) with no risks for MDROs; fever workup pending. Eye twitching, etc. in ER likely not seizure but will monitor and are considering vasovagal # SIRS+ unclear source with pending imaging # ?Vasovagal episode # Abd pain Followup cultures, hold off further abx, monitor for fevers, try to identift source Rest of plan per resident note
[2019-05-04] MEDS: PENICILLIN V POTASSIUM 500 MG TABLET PO SCH (23:20)
[2019-05-05 08:11] LABS: BASO % 0.2 % (0-2.0); EOS % 0.4 % (0-4.5); HEMATOCRIT 41.8 % (35.4-49); HEMOGLOBIN 14.5 GM/dL (11.7-16.9); LYMPH % 16.9 % (8-40); MCH 28.2 pg (25.7-33.7); MCHC 34.8 g/dl (32.0-35.9); MEAN CELL VOLUME 81.2 fl (80-96); MONO % 10.3 % (3.8-10.2); NEUT % 72.2 % (42.8-82.8); PLATELET COUNT 123 K/MM3 (134-434); RBC 5.15 M/mm3 (4.00-5.60); RDW 13.1 % (11.9-15.9); WHITE BLOOD COUNT 12.8 K/mm3 (4.0-10.0)
[2019-05-05 08:51] LABS: ALBUMIN 3.7 g/dl (3.4-5.0); BILIRUBIN,TOTAL 0.4 mg/dL (0.2-1); BLOOD UREA NITROGEN 6.1 mg/dL (7-18); CALCIUM 8.8 mg/dL (8.5-10.1); CREATININE 0.8 mg/dL (0.55-1.3); MAGNESIUM 2.1 mg/dL (1.8-2.4); PHOSPHOROUS 2.8 mg/dL (2.5-4.9); POTASSIUM 3.8 mmol/L (3.5-5.1); TOT PROT 7.1 g/dl (6.4-8.2)
[2019-05-05] MEDS ORDERED: CEFTRIAXONE 1 GM in DEXTROSE 5%-WATER - 50 ML IVPB SCH (10:00)
[2019-05-05] MEDS ORDERED: AZITHROMYCIN IVPB 500 MG/250 ML BAG IVPB SCH (10:00)
[2019-05-05] MEDS ORDERED: PT OWN MED DRAWER 7, Y5N ONE (10:45)
[2019-05-05] MEDS: ACETAMINOPHEN 325 MG TABLET (FP) PO PRN (10:52)
[2019-05-05] MEDS: PENICILLIN V POTASSIUM 500 MG TABLET PO SCH (10:52)
[2019-05-05] MEDS: ENOXAPARIN NA (PORCINE) 40 MG/0.4 ML DISP.SYRIN SQ SCH (10:53)
[2019-05-05 11:06] VITALS: BP 137/78; TEMP 99.2
--- NOTE | 2019-05-05 11:43 | DS ---
Physical Exam: SUBJECTIVE: 33 y/o M OBJECTIVE: Vital Signs Temp Pulse Resp BP Pulse Ox 99.2 F 74 17 137/78 99 05/05/19 10:00 05/05/19 10:00 05/05/19 10:00 05/05/19 10:00 05/05/19 09:00 PHYSICAL EXAM GENERAL: The patient is awake, alert, and fully oriented, in no acute distress. HEAD: Normal with no signs of trauma. EYES: PERRL, extraocular movements intact, sclera anicteric, conjunctiva clear. ENT: Ears normal, nares patent, oropharynx clear without exudates, moist mucous membranes. NECK: Trachea midline, full range of motion, supple. LUNGS: Breath sounds equal, clear to auscultation bilaterally, no wheezes, no crackles, no accessory muscle use. HEART: Regular rate and rhythm, S1, S2 without murmur, rub or gallop. ABDOMEN: Soft, nontender, nondistended, normoactive bowel sounds, no guarding, no rebound, no hepatosplenomegaly, no masses. EXTREMITIES: 2+ pulses, warm, well-perfused, no edema. NEUROLOGICAL: Cranial nerves II through XII grossly intact. Normal speech, gait not observed. PSYCH: Normal mood, normal affect. SKIN: Warm, dry, normal turgor, no rashes or lesions noted. LABS Laboratory Results - last 24 hr 05/04/19 05/04/19 05/04/19 10:10 10:10 10:10 WBC 14.1 H RBC 5.10 Hgb 14.2 Hct 42.1 MCV 82.6 MCH 27.8 MCHC 33.7 RDW 13.3 Plt Count 117 L MPV 10.3 Absolute Neuts (auto) 10.6 H Neutrophils % 75.4 Lymphocytes % 15.8 D Monocytes % 8.5 Eosinophils % 0.2 Basophils % 0.1 Nucleated RBC % 0 ESR 5 Sodium 144 Potassium 4.2 Chloride 109 H Carbon Dioxide 27 Anion Gap 8 BUN 10.3 Creatinine 0.8 Est GFR (CKD-EPI)AfAm 137.96 Est GFR (CKD-EPI)NonAf 119.03 Random Glucose 85 Calcium 8.7 Phosphorus Magnesium Total Bilirubin 0.6 AST 26 ALT 34 Alkaline Phosphatase 79 C-Reactive Protein 6.0 H Total Protein 7.0 Albumin 3.7 Hep A IgM Ab Confirm Negative Hep Bs Antigen Negative Hep B Core IgM Ab Negative Hepatitis C Ab (EIA) <0.1 HIV 1&2 Ag/Ab, 4th Gen Non reactive Group A Strep Rapid 05/04/19 05/05/19 05/05/19 15:45 06:55 06:55 WBC 12.8 H RBC 5.15 Hgb 14.5 Hct 41.8 MCV 81.2 MCH 28.2 MCHC 34.8 RDW 13.1 Plt Count 123 L MPV 10.0 Absolute Neuts (auto) 9.2 H Neutrophils % 72.2 Lymphocytes % 16.9 Monocytes % 10.3 H Eosinophils % 0.4 D Basophils % 0.2 Nucleated RBC % 0 ESR Sodium 139 Potassium 3.8 Chloride 104 Carbon Dioxide 28 Anion Gap 6 L BUN 6.1 L Creatinine 0.8 Est GFR (CKD-EPI)AfAm 137.96 Est GFR (CKD-EPI)NonAf 119.03 Random Glucose 96 Calcium 8.8 Phosphorus 2.8 Magnesium 2.1 Total Bilirubin 0.4 AST 26 ALT 33 Alkaline Phosphatase 75 C-Reactive Protein Total Protein 7.1 Albumin 3.7 Hep A IgM Ab Confirm Hep Bs Antigen Hep B Core IgM Ab Hepatitis C Ab (EIA) HIV 1&2 Ag/Ab, 4th Gen Group A Strep Rapid Positive HOSPITAL COURSE: Date of Admission:05/04/19 33 y/o M Date of Discharge: 05/05/19 Discharge Summary Reason For Visit: PNEUMONIA Current Active Problems Fever (Acute) Leukocytosis (Acute) Pneumonia (Acute) Condition: Good - Instructions Diet, Activity, Other Instructions: YOUR VISIT You came to the hospital with fever, chills, and sore throat. You were given fluids, antibiotics, and Tylenol. You were tested for possible infections and were only found to have strep throat. You are now medically stable and can go home with pain medication and the remainder of the antibiotics for strep throat. MEDICATIONS Please take the following medications to continue care of your strep throat. - Tylenol 650 mg once by mouth when you have pain and/or fever - Penicillin 500 mg by mouth two times a day with food, for 9 more days, starting tonight. ADDITIONAL CARE Please continue to rest and drink plenty of fluids. Please make an appointment to establish care with a primary care provider 1 week from today. Since you do not have one currently, you can come to our resident's clinic at the [facility] at [address] [place] [address]. You can call to make an appointment. If you would like to continue care with Dr. Chris Storey, please ask for a Wednesday morning appointment. ADDITIONAL INFORMATION Please call 911 or come to the emergency department if you feel worsening of your symptoms, shortness of breath, chest pain, unusual bleeding, decreased awareness, loss of energy or any alarming symptoms. Referrals: [facility] [Provider Group] Disposition: HOME - Home Medications Comprehensive Discharge Medication List: Ambulatory Orders Acetaminophen [Tylenol .Regular Strength -] 650 mg PO Q6H PRN tablet 05/05/19 Penicillin V Potassium [Pen Vee K -] 500 mg PO BID #18 tablet 05/05/19 - Discharge Referral Referred to [facility] No ATTENDING PHYSICIAN STATEMENT I saw and evaluated the patient. I reviewed the resident's note and discussed the case with the resident. I agree with the resident's findings and plan as documented. SUBJECTIVE: OBJECTIVE: ASSESSMENT AND PLAN:
--- NOTE | 2019-05-05 11:50 | PN ---
Teaching Attending Note Name of Resident: Chris Storey ATTENDING PHYSICIAN STATEMENT I saw and evaluated the patient. I reviewed the resident's note and discussed the case with the resident. I agree with the resident's findings and plan as documented. SUBJECTIVE:throat feeling better today. no fever or chills. deneis Cp, SOB, fever, chills, N/V/C/D OBJECTIVE: Last Vital Signs Temp Pulse Resp BP Pulse Ox 99.2 F 74 17 137/78 99 05/05/19 10:00 05/05/19 10:00 05/05/19 10:00 05/05/19 10:00 05/05/19 09:00 General NAD Lungs CTA B/L no wheezing/rales/rhonchi ASSESSMENT AND PLAN: 33yo M with no PMH presented to the ER with subjective fevers and chills and phanryngitis and met SIRS criteria on arrival. during hospital course was noted to be unresponsive after blood draw 1. Acute strep pharngitis- afebrile 24H, leukocytosis trending down. rapid strep + started on pcn 500mg BID for 10 days. cx negative 2. Unresponsive with eye deviation- no repeat episodes 3. DVT ppx- hep sq 4. spoke with mother present at bedside. all questions answered. verbalized understanding and agreement
[2019-05-09 15:10] LABS: E.chaff HME IgG Negative (Neg:<1:64)
[2019-05-09 18:07] LABS: BABESIA MICROTI ANTIBODY IGG <1:10 (Neg:<1:10); BABESIA MICROTI ANTIBODY IGM <1:10 (Neg:<1:10)
== END 2019-05-05 14:12 | disposition home or self-care (01) | DRG 113 ==
LOC: JER 02:38 → JERBED 05:30 → J6S 08:14
PROVIDERS: ADMIT Internal Medicine; ATTEND Internal Medicine
DX: J02.0 Streptococcal pharyngitis (principal); R65.10 Systemic inflammatory response syndrome (SIRS) of non-infectious origin without acute organ dysfunction; D72.829 Elevated white blood cell count, unspecified; R50.9 Fever, unspecified; R10.9 Unspecified abdominal pain; R55 Syncope and collapse
CPT/HCPCS: 36415; 70450-TC; 71046-TC-FY; 71250-TC; 74176-TC; 80053; 80074; 81003; 83605; 83735; 84100; 85025; 85610; 85651; 86038; 86140; 86480; 86618; 86666; 86753; 87040; 87086; 87389; 87633; 87804; 87880; 93005; 93010; 99285-25; J7030

== ENCOUNTER 2022-08-23 17:33 | Emergency (ER) | payer MEDICARE, OTHER ==
[2022-08-23 17:42] VITALS: BP 119/81; PULSE 107; RESP 18; TEMP 98.1; BMI 22.6
[2022-08-23] MEDS ORDERED: ERYTHROMYCIN 0.5% OPHTHALMIC OINTMENT 3.5 GM TUBE ONE (18:21)
== END 2022-08-23 18:52 | disposition home or self-care (01) ==
LOC: JER 17:33 → JERFT 17:33
DX: S05.02XA Injury of conjunctiva and corneal abrasion without foreign body, left eye, initial encounter (principal); W45.8XXA Other foreign body or object entering through skin, initial encounter
CPT/HCPCS: 99283-25